=== PATIENT | male | born 1975 | race Caucasian/White ===

== ENCOUNTER 2016-06-15 13:18 | Inpatient (IN) | payer OTHER ==
[2016-06-15] MEDS ORDERED: BLISTEX LIPSTICK 1 EACH TP PRN (14:46)
[2016-06-15] MEDS ORDERED: ACETAMINOPHEN 325 MG TABLET PO PRN (14:46)
[2016-06-15] MEDS ORDERED: MAGNESIUM HYDROXIDE 30 ML UDCUP PO PRN (14:46)
[2016-06-15] MEDS ORDERED: SODIUM CHLORIDE 0.9% 100 ML IV PRN (14:46)
[2016-06-15] MEDS ORDERED: BISACODYL 5 MG TABLET.EC PO PRN (14:46)
[2016-06-15] MEDS ORDERED: MENTHOL/CETYLPYRD 1 EACH LOZENGE PO PRN (14:46)
[2016-06-15] MEDS ORDERED: BISACODYL 10 MG SUP PR PRN (14:46)
[2016-06-15 14:57] VITALS: BMI 55.8
[2016-06-15] MEDS ORDERED: ENOXAPARIN SODIUM 40 MG/0.4 ML SYRINGE SUB-Q SCH (15:00)
[2016-06-15 15:55] LABS: ARTERIAL BLOOD GAS pH 7.346 (7.350-7.450)
[2016-06-15 16:00] LABS: ARTERIAL BLOOD GAS PCO2 73.3 mmHg (35.0-45.0); ARTERIAL BLOOD GAS PO2 59.6 mmHg (80.0-90.0)
[2016-06-15 16:01] LABS: ARTERIAL BLOOD GAS BASE EXCESS 10.2 mmol/L (-2.0-2.0); ARTERIAL BLOOD GAS HCO3 39.2 mmol/L (22.0-28.0)
--- NOTE | 2016-06-15 16:06 | RAD ---
PORTABLE CHEST RADIOGRAPH HISTORY: Acute respiratory failure. Frontal portable chest radiograph dated 06/15/2016. COMPARISON: None. FINDINGS: FOCAL AIRSPACE OPACITY: No gross airspace consolidation. PLEURAL EFFUSION: None. CARDIOMEDIASTINAL SILHOUETTE: Moderate cardiomegaly with mild vascular congestion. Evidence of prior AICD placement. PNEUMOTHORAX: None identified. OSSEOUS STRUCTURES: No grossly destructive lesions. IMPRESSION: Moderate cardiomegaly and mild vascular congestion. Pericardial effusion is also possible. No jameel pulmonary edema. AICD identified.
[2016-06-15] MEDS ORDERED: FUROSEMIDE 40 MG/4 ML VIAL IV ONE (17:09)
[2016-06-15] MEDS ORDERED: LIDOCAINE 2% UROJECT 10 ML UR ONE (19:50)
--- NOTE | 2016-06-15 20:09 | HP ---
MONTSERRAT SPARKS [id number] DATE OF ADMISSION: June 15, 2016 CHIEF COMPLAINT: Somnolence. HISTORY OF PRESENT ILLNESS: The patient is a 41-year-old male with a past medical history significant for chronic hypercapnic respiratory failure, morbid obesity and chronic diastolic congestive heart failure as well as obesity hypoventilation syndrome who presented to the [facility] this morning with hypersomnolence. Workup there showed hypercapnia with a PCO2 of 280. He was managed with BiPAP therapy. He had a slightly elevated white blood cell count and was covered with Levaquin for possible pneumonia. Beds were not available in the area, and he was transferred to [facility] Emergency Department by ambulance to the intensive care unit for further treatment and evaluation. After spending many hours on the BiPAP, the patient's level of consciousness improved, and he was able to give some history, but he has a history of a traumatic brain injury and bipolar disorder making his history a little bit difficult. He reports he has had a chronic cough. He has not had any documented fevers. He reports the cough is nonproductive. It is unclear if he has been compliant with his CPAP therapy or BiPAP therapy. He was just prescribed this last month after a prolonged hospitalization at [facility] for similar symptoms. Patient reports about a 30 pound weight gain since his discharge from the hospital with swelling of the ankles. He has chronic orthopnea and sleeps sitting up essentially with his legs in a dependent position. REVIEW OF SYSTEMS: Is negative for any documented fever or chills. He does have generalized weakness. He denies any recent upper respiratory symptoms. He has a chronic cough which is not productive. He denies any chest pain or palpitations. He has had no nausea, vomiting, diarrhea, constipation, or abdominal pain. He denies any new arthralgias but has chronic pain due to arthritis. He has had no headaches, fainting, blackouts, or seizures. He has some chronic urinary urgency which is unchanged. Review of systems is otherwise negative. PAST MEDICAL HISTORY: Is significant for: 1. Generalized osteoarthritis. 2. He has a history of moderate persistent asthma. 3. He has a history of bipolar affective disorder. 4. He has a history of cardiomyopathy. Last echocardiogram is not available, but reported history of right-sided heart failure and pulmonary hypertension. 5. He had cardiac catheterization in 2011 showing minimal coronary artery disease. 6. He has a history of chronic gastroesophageal reflux disease. 7. He was hospitalized last month at [facility] for hypercapnic respiratory failure. Awaiting records. 8. He has chronic essential hypertension. 9. He has morbid obesity with a body mass index of 56. 10. He has a history of a traumatic brain injury after an accident many years ago. 11. He had an episode of ventricular tachycardia in 2011 and again in 2012 and has a pacer/defibrillator which was placed in [place] in 2011. He is not established with a continuity clerk. 12. He was recently referred to a shotblast operator but has not yet established care. He has never had sleep study. PAST SURGICAL HISTORY: Significant for: 1. Cardiac catheterization in February,. 2. An implanted ICD. 3. He also had a right ankle open reduction internal fixation about seven years ago. 4. He had a feeding tube temporarily placed at the age of 17 when he had his traumatic brain injury. That has long since been removed. ALLERGIES: REPORTED TO TRAMADOL WHICH MADE HIM VERY SLUGGISH AND SLEEPY. CURRENT MEDICATIONS: Consist of: 1. Flomax 0.4 mg at bedtime. 2. Carafate 1 gr before meals and at bedtime. 3. Aldactone 100 mg orally daily. 4. Betapace 160 mg orally twice daily. 5. Potassium chloride 20 mEq orally twice daily. 6. Protonix 40 mg orally twice daily. 7. Zyprexa 20 mg at bedtime. 8. Lasix 40 mg orally twice daily. 9. Advair 250/50 mcg inhaler one inhalation twice daily. 10. Aspirin 81 mg daily. FAMILY HISTORY: Significant for a maternal grandfather who had coronary artery disease in his 50s. Both parents are alive and have no other chronic medical problems. SOCIAL HISTORY: He lives alone. He is on disability. He has a friend, Dafne, who is reportedly his ex-girlfriend. He has two grown children. He smokes about a quarter pack per day and has done so for about 20 years and smokes medical marijuana. He denies any illicit drug use. Primary care provider is Dr. Suero in [place]. PHYSICAL EXAMINATION: VITAL SIGNS: His vital signs on initial presentation in [place] showed an oxygen saturation of 80% on three liters by nasal cannula, temperature is 36.4 celsius, heart rate of 114 beats per minutes, respiratory rate of 37, blood pressure 144/91. Body mass index is 55.9. and weight is 186.9 kilograms. His current vital signs show a temperature 98.0, pulse 105, blood pressure 130/70, respirations 24, oxygen saturation 90% on BiPAP with an FIO2 of 30%. GENERAL: This is a morbidly obese male who initially was somnolent but now is alert and oriented in no acute distress. HEENT: Shows moist, pink oral mucosa. CHEST: Lungs show diminished breath sounds in the bases, otherwise clear. CARDIOVASCULAR: Exam reveals a regular tachycardia without a murmur. ABDOMEN: Obese, soft, nontender, nondistended with positive bowel sounds. EXTREMITIES: Show 2+ pitting edema to the knees. Dorsalis pedis pulses are 1+ in both feet and equal bilaterally. SKIN: Shows stage 1 decubitus in the sacral region which is only about 1 x 2 cm in the gluteal crease. LABORATORY STUDIES: His laboratory studies from [place] show normal liver function tests, albumin of 3.6, globulin of 3.1. Troponin T was less than 0.01. White blood cell count was elevated at 13.6, hemoglobin of 13.8, hematocrit 44.6, platelet count of 226,000. B-type natriuretic peptide level was elevated at 485. His D-dimer was less than or equal to 0.27. Sodium was 136, potassium 3.8, serum bicarb was 35.3, glucose 157, creatinine 0.9, BUN of 10.6. His arterial blood gas on arrival here after being on BiPAP for an hour or two showed a pH of 7.35, PCO2 of 73.3, and PO2 of 59.6. DIAGNOSTIC IMAGING: Portable chest x-ray shows evidence of cardiomegaly with pulmonary vascular congestion. No airspace consolidation was seen. ASSESSMENT: Patient has acute on chronic hypercapnic and hypoxic respiratory failure associated with obesity hypoventilation syndrome. He also has evidence of acute on chronic diastolic heart failure with a history of pulmonary hypertension likely due to the above and morbid obesity. He has a history of ventricular tachycardia in the past and has an ICD in place. He has some moderate persistent asthma which appears to be stable. He has a history of bipolar disorder which is stable. He has a history of a traumatic brain injury on disability. He has history of nonobstructive coronary artery disease, also stable. PLAN: 1. He is admitted to the ICU because of his need for BiPAP and because of his acute on chronic respiratory failure. 2. He has been started on Levaquin for bronchitis. We will continue this. 3. We will continue with the BiPAP overnight. 4. Work on getting records from [facility]. 5. He will be diuresed with IV Lasix. 6. Venous thromboembolism risk is moderate and he will be given Lovenox for prophylaxis. 7. For his bipolar disorder, we will continue his Zyprexa. 8. He will continue with sotalol or Betapace for his conduction disease. 9. Further treatment and recommendations will depend on his hospital course. cc: Aidee Suero D.O.
[2016-06-15] MEDS: OLANZAPINE 5 MG TABLET PO SCH (20:18)
[2016-06-15] MEDS: DOCUSATE SODIUM 100 MG CAPSULE PO SCH (20:18)
[2016-06-15] MEDS: SUCRALFATE 1 G TABLET PO SCH (20:19)
[2016-06-15] MEDS: PANTOPRAZOLE 40 MG TABLET DR PO SCH (20:19)
[2016-06-15] MEDS: TAMSULOSIN HCL 0.4 MG CAPSULE.DR PO SCH (20:19)
[2016-06-15] MEDS: SOTALOL HCL 80 MG TABLET PO SCH (20:19)
[2016-06-15] MEDS: POTASSIUM CHLORIDE 20 MEQ TAB.PRT.SR PO SCH (20:20)
[2016-06-15] MEDS: ALPRAZOLAM 0.5 MG TABLET PO PRN (20:46)
[2016-06-15 23:41] LABS: AMPHETAMINES/METHAMPHETAMINES NEGATIVE (NEGATIVE); COCAINE NEGATIVE (NEGATIVE); MARIJUANA POSITIVE (NEGATIVE); METHADONE NEGATIVE (NEGATIVE); OPIATES NEGATIVE (NEGATIVE); TRICYCLIC ANTIDEPRESSANTS NEGATIVE (NEGATIVE)
[2016-06-16] MEDS: FLUTICASONE/SALMETEROL 250/50 14 PUFFS/DISK IH SCH ×3 (04:51→20:15)
[2016-06-16 06:00] LABS: ABSOLUTE NEUTROPHIL COUNT 10.8 K/mm3 (1.8-7.7); BASO % 0.2 % (0.2-1.0); EOS % 0.1 % (0.9-2.9); HEMATOCRIT 44.5 % (32.0-52.0); HEMOGLOBIN 13.1 gm/l (14.0-18.0); IMM NEUT # 0.1 K/mm3 (0-0.2); IMM NEUT% 0.5 % (0-1); LYMPH # 2.7 (1.0-4.8); LYMPH % 18.4 % (15-45); MEAN CELL VOLUME 86.4 fl (80.0-94.0); MEAN CORPUSCULAR HEMOGLOBIN 25.4 pg (27.0-31.0); MEAN CORPUSCULAR HGB CONC 29.4 g/dl (33.0-37.0); MEAN PLATELET VOLUME 9.6 fl (7.4-10.4); NEUT % 73.8 % (43-75); PLATELET COUNT 212 K/mm3 (130-400); RED CELL DISTRIBUTION WIDTH 18.6 % (11.5-14.5)
[2016-06-16] MEDS ORDERED: ENOXAPARIN SODIUM 30 MG/0.3 ML SYRINGE SUB-Q SCH (06:00)
[2016-06-16 06:14] LABS: ALBUMIN 3.1 gm/dL (3.5-5.7); CALCIUM 8.9 mg/dL (8.6-10.3)
[2016-06-16 06:50] LABS: ALB/GLOB RATIO 0.9 (>1.0)
[2016-06-16] MEDS: SUCRALFATE 1 G TABLET PO SCH ×4 (07:24→20:11)
[2016-06-16] MEDS: POTASSIUM CHLORIDE 20 MEQ TAB.PRT.SR PO SCH ×2 (08:27→20:11)
[2016-06-16] MEDS: LEVOFLOXACIN 750 MG TABLET PO SCH (08:28)
[2016-06-16] MEDS: PANTOPRAZOLE 40 MG TABLET DR PO SCH ×2 (08:28→20:10)
[2016-06-16] MEDS: ASPIRIN (ENTERIC COATED) 81 MG TABLET.EC PO SCH (08:28)
[2016-06-16] MEDS: DOCUSATE SODIUM 100 MG CAPSULE PO SCH ×2 (08:28→20:12)
[2016-06-16] MEDS: FUROSEMIDE 40 MG/4 ML VIAL IV SCH ×2 (08:28→17:10)
[2016-06-16] MEDS: SPIRONOLACTONE 50 MG TABLET PO SCH (08:28)
[2016-06-16] MEDS: SOTALOL HCL 80 MG TABLET PO SCH ×2 (08:28→20:12)
--- NOTE | 2016-06-16 11:15 | PDOC43 ---
- Subjective Chief Complaint: Somnolence Subjective: Reports Shortness of Breath (chronic) - Objective Vital Signs Temperature 97.9 F 06/16/16 08:00 Pulse Rate 93 06/16/16 08:00 Respiratory Rate 22 06/16/16 08:00 Blood Pressure 137/97 06/16/16 08:00 O2 Saturation by Pulse Oximetry 93 06/16/16 08:00 Oxygen Delivery Method Nasal Cannula Oxygen Flow Rate 2 Intake and Output 06/15/16 06/16/16 06/17/16 06:59 06:59 06:59 Intake Total 1050 Output Total 3575 Balance -2525 General: Alert, Cooperative, Moderate Distress HEENT: Mucous membr. moist/pink Lungs: Diminished at Bases Cardiovascular: Regular Rate and Rhythm Abdomen: Soft, Normal Bowel Sounds, Non-Distended, No Tenderness Extremities: Edema (1 plus from ankles to knees) Skin: Warm, Dry, Intact, Other (except for red area over sacrum about 1 by 2cm consistent with stage 1 decubitus) Laboratory 06/16/16 05:36 06/16/16 05:36 06/16/16 06/15/16 06/15/16 05:36 20:05 15:41 MCH 25.4 L MCHC 29.4 L RDW 18.6 H pCO2 73.3 H* pO2 59.6 L ABG pH 7.346 L ABG HCO3 39.2 H ABG O2 Saturation 89.4 L ABG Base Excess 10.2 H Estimated GFR 107 H AST 10 L Albumin 3.1 L Albumin/Globulin Ratio 0.9 L U Marijuana (THC) Screen Positive H Current Medications: Current meds reviewed in EMR. - Problems: Assessment/Plan (1) Metabolic encephalopathy Status: Acute Assessment/Plan: improved, likely due to hypercapnea (2) Respiratory failure, acute and chronic Qualifiers: Respiratory failure complication: hypoxia and hypercapnia Qualifier Code: (J96.21) Acute and chronic respiratory failure with hypoxia Status: Acute Assessment/Plan: improving with bipap and diuresis (3) Diastolic CHF, acute on chronic Status: Acute Assessment/Plan: diastolic, ECHO ordered, diuresing (4) Obesity hypoventilation syndrome Status: Acute Assessment/Plan: likely cause for need for Bipap, has pulmonary referral pending (5) Pulmonary hypertension Status: Chronic Assessment/Plan: chronic due to all of the above (6) Morbid obesity with BMI of 50.0-59.9, adult Status: Acute Assessment/Plan: major factor behind patients chronic resp. problems, he is pursuing gastric bypass but frustrated by delays (7) History of ventricular tachycardia Status: Acute Assessment/Plan: Has ICD in place-stable on tele (8) CAD (coronary artery disease), [place] coronary artery Qualifiers: [place] vs. transplanted heart: [place] heart Associated angina: without angina Qualifier Code: (I25.10) Atherosclerotic heart disease of [place] coronary artery without angina pectoris Status: Chronic Assessment/Plan: mild and nonobstructive on cath done in 2013 (9) Acute bronchitis Qualifiers: Bronchitis organism: unspecified organism Qualifier Code: (J20.9) Acute bronchitis, unspecified Status: Acute Assessment/Plan: presumed bacteria-on Levaquin (10) Asthma Qualifiers: Asthma severity: moderate persistent Status: Acute Assessment/Plan: on advair, no sig wheezing to indicate a need for steroids (11) Bipolar affective disorder Qualifiers: Active/Remission status: remission status unspecified Qualifier Code: ( F31.9) Bipolar disorder, unspecified Status: Acute Assessment/Plan: stable on zyprexa (12) Traumatic brain hem NEC Status: Chronic Assessment/Plan: at age 17, may be contributing to patient's irritability and poor compliance VTE Prophylaxis: Lovenox Disposition: Home in 2-3 days
[2016-06-16] MEDS ORDERED: WATER FOR IRRIG,STERILE 500 ML BOT ONE (11:27)
[2016-06-16] MEDS ORDERED: ENOXAPARIN SODIUM 60 MG/0.6 ML SYRINGE SUB-Q SCH (17:00)
[2016-06-16] MEDS: TAMSULOSIN HCL 0.4 MG CAPSULE.DR PO SCH (20:11)
[2016-06-16] MEDS: OLANZAPINE 5 MG TABLET PO SCH (20:12)
[2016-06-16] MEDS: ALPRAZOLAM 0.5 MG TABLET PO PRN (20:36)
[2016-06-17] MEDS: ALPRAZOLAM 0.5 MG TABLET PO PRN (02:51)
[2016-06-17 06:25] LABS: ABSOLUTE NEUTROPHIL COUNT 10.6 K/mm3 (1.8-7.7); BASO % 0.3 % (0.2-1.0); EOS # 0.1 (0.0-0.5); EOS % 0.5 % (0.9-2.9); HEMATOCRIT 47.4 % (32.0-52.0); HEMOGLOBIN 13.6 gm/l (14.0-18.0); IMM NEUT # 0.1 K/mm3 (0-0.2); IMM NEUT% 0.5 % (0-1); LYMPH # 3.2 (1.0-4.8); LYMPH % 21.2 % (15-45); MEAN CELL VOLUME 87.3 fl (80.0-94.0); MEAN CORPUSCULAR HGB CONC 28.7 g/dl (33.0-37.0); MEAN PLATELET VOLUME 9.9 fl (7.4-10.4); MONO # 1.2 (0.0-0.8); MONO % 7.6 % (4-12); NEUT % 69.9 % (43-75); PLATELET COUNT 246 K/mm3 (130-400); RED CELL DISTRIBUTION WIDTH 18.6 % (11.5-14.5)
[2016-06-17 06:40] LABS: CALCIUM 8.8 mg/dL (8.6-10.3)
[2016-06-17] MEDS: SUCRALFATE 1 G TABLET PO SCH ×2 (10:32→11:42)
[2016-06-17] MEDS: SPIRONOLACTONE 50 MG TABLET PO SCH (10:35)
[2016-06-17] MEDS: POTASSIUM CHLORIDE 20 MEQ TAB.PRT.SR PO SCH (10:36)
[2016-06-17] MEDS: SOTALOL HCL 80 MG TABLET PO SCH (10:37)
[2016-06-17] MEDS: PANTOPRAZOLE 40 MG TABLET DR PO SCH (10:38)
[2016-06-17] MEDS: LEVOFLOXACIN 750 MG TABLET PO SCH (10:38)
[2016-06-17] MEDS: FUROSEMIDE 40 MG/4 ML VIAL IV SCH (10:39)
[2016-06-17] MEDS: ASPIRIN (ENTERIC COATED) 81 MG TABLET.EC PO SCH (10:39)
[2016-06-17] MEDS: DOCUSATE SODIUM 100 MG CAPSULE PO SCH ×2 (10:40→11:43)
[2016-06-17] MEDS: FLUTICASONE/SALMETEROL 250/50 14 PUFFS/DISK IH SCH (11:24)
[2016-06-17 14:22] VITALS: BP 123/78
--- NOTE | 2016-06-17 16:35 | PDOC36 ---
Provider Note Subject: Patient became very upset when I answered my cell phone while in his room and has decided to leave AMA. Patient advised of the critical importance of staying compliant with his Bipap/CPAP therapy at home. Patient advised to seek medical attention at nearest hospital if/when his respiratory status decompensates. Patient left without being seen and refused any medical exam by myself.
== END 2016-06-17 16:30 | disposition home or self-care (01) | DRG 189 ==
LOC: ICU 14:28
PROVIDERS: ADMIT Family Medicine; ATTEND Family Medicine
DX: J96.22 Acute and chronic respiratory failure with hypercapnia (principal); I50.33 Acute on chronic diastolic (congestive) heart failure; Z68.43 Body mass index [BMI] 50.0-59.9, adult; E66.2 Morbid (severe) obesity with alveolar hypoventilation; I47.2 Ventricular tachycardia; J96.21 Acute and chronic respiratory failure with hypoxia; I11.0 Hypertensive heart disease with heart failure; M15.9 Polyosteoarthritis, unspecified; J45.30 Mild persistent asthma, uncomplicated; K21.9 Gastro-esophageal reflux disease without esophagitis; Z87.820 Personal history of traumatic brain injury; F17.210 Nicotine dependence, cigarettes, uncomplicated; F12.20 Cannabis dependence, uncomplicated; F31.9 Bipolar disorder, unspecified; I25.10 Atherosclerotic heart disease of native coronary artery without angina pectoris; J20.9 Acute bronchitis, unspecified; Z53.21 Procedure and treatment not carried out due to patient leaving prior to being seen by health care provider